=== PATIENT | female | born 1940 | race Caucasian/White ===

== ENCOUNTER 2021-02-28 09:40 | Outpatient (REF) | payer MEDICARE, SELFPAY ==
--- NOTE | ~2021-02-28 | XR_ITS ---
EXAMINATION: XR ANKLE, RIGHT CLINICAL INFORMATION: Swelling COMPARISON: Previous x-ray May 2014 TECHNIQUE: AP, lateral, and mortise views of the right ankle. FINDINGS: There is cortical irregularity of the lateral talus likely related to old fracture when compared with previous x-ray May 2014. There is also a well-corticated ossification inferior to the medial aspect of the lateral malleolus questionable for changes related to old trauma. No acute fracture or dislocation is seen. The ankle mortise is normal. There is lateral soft tissue swelling. There are small calcaneal spurs. There are 2 screws seen in the first metatarsal bone. XR/XR ankle RT min 3V IMPRESSION: Lateral soft tissue swelling. Evidence of old trauma to the lateral talus question lateral malleolus and
== END 2021-02-28 09:41 | disposition home or self-care (01) ==
LOC: HO.HMGCX 09:40
PROVIDERS: PCP Family Medicine; Visit Provider Nurse Practitioner Family
DX: M25.571 Pain in right ankle and joints of right foot (principal); M25.471 Effusion, right ankle
CPT/HCPCS: 73610

== ENCOUNTER 2022-04-18 09:04 | Outpatient (REF) | payer MEDICARE, SELFPAY ==
--- NOTE | ~2022-04-18 | XR_ITS ---
EXAMINATION: CR X-RAY FOOT AND ANKLE RIGHT CLINICAL INFORMATION: Right foot and ankle pain. COMPARISON: None TECHNIQUE: 3 views each of the right foot and ankle were obtained. FINDINGS: The ankle joint and mortise are intact. The tarsal bones are normally aligned. Post surgical changes are seen in the first metatarsal showing good anatomic alignment without hardware abnormality. Mild first metatarsophalangeal and distal interphalangeal degenerative joint changes are seen. There is no acute fracture or dislocation. The soft tissues are unremarkable. XR/XR ankle RT 2V IMPRESSION: Mild degenerative changes. No acute osseous abnormality or hardware abnormality.
--- NOTE | ~2022-04-18 | XR_ITS ---
EXAMINATION: CR X-RAY FOOT AND ANKLE RIGHT CLINICAL INFORMATION: Right foot and ankle pain. COMPARISON: None TECHNIQUE: 3 views each of the right foot and ankle were obtained. FINDINGS: The ankle joint and mortise are intact. The tarsal bones are normally aligned. Post surgical changes are seen in the first metatarsal showing good anatomic alignment without hardware abnormality. Mild first metatarsophalangeal and distal interphalangeal degenerative joint changes are seen. There is no acute fracture or dislocation. The soft tissues are unremarkable. XR/XR foot RT min 3V IMPRESSION: Mild degenerative changes. No acute osseous abnormality or hardware abnormality.
== END 2022-04-18 09:05 | disposition home or self-care (01) ==
LOC: HO.HMGCX 09:04
PROVIDERS: Visit Provider Internal Medicine
DX: S99.921A Unspecified injury of right foot, initial encounter (principal); M25.571 Pain in right ankle and joints of right foot
CPT/HCPCS: 73600; 73630

== ENCOUNTER 2023-05-14 13:06 | Outpatient (AMB) | payer MEDICARE, SELFPAY ==
--- NOTE | 2023-05-14 13:08 | MHC.OFFWIV ---
Intake Vital Signs 05/14/23 13:16 Height 5 ft 3 in Weight 141 lb BMI 25.0 BP 140/78 H Blood Pressure Location Rt brachial Position Sitting Pulse 67 Pulse Source Pulse Oximeter Temp 97.3 F Temp Source Temporal Artery Scan Pulse Oximetry (%) 98 Oxygen Delivery Method Room Air Intake Visit Reasons: EP, UTI? Intake Note: Pt is here c/o possible UTI. Pt states a lot of burning when urinating. Patient Tobacco Use Status: Never used Tobacco Allergies No Known Allergies Allergy (Mild, Unverified 05/14/23 13:30) NOT APPLICABLE Medication List - Last Reconciled 05/14/23 by Clint Puckett MD cholecalciferol (vitamin D3) PO fluticasone propionate 220 mcg/actuation 2 puffs inhalation BID furosemide mg PO levothyroxine 0 mcg PO losartan 100 mg PO DAILY mecobalamin (vitamin B12) PO DAILY rosuvastatin 5 mg PO DAILY Do you need a note to return to daycare/school/sports/work: No HPI EP, UTI? HPI Details Patient presents for a sick visit. Reports symptoms of increased frequency of urination, burning on urination and discomfort in the suprapubic area. Symptoms started in the past few days. No fevers or chills. No nausea or vomiting. [facility] Social History Patient Tobacco Use Status: Never used Tobacco Physical Exam Vital Signs: Last Vital Signs Temp 97.3 F 05/14/23 13:16 Pulse 67 05/14/23 13:16 BP 140/78 H 05/14/23 13:16 Pulse Ox 98 05/14/23 13:16 Oxygen Delivery Method Room Air 05/14/23 13:16 BMI result Body Mass Index 25.0 General: Yes bladder normal to palpation and Yes no CVA tenderness Bimanual exam- vagina & uterus: bladder normal to palpation Back/Spine/Pelvis Back: no CVA tenderness Results AMB Urinalysis, Automated UA Leukoctes 15 Debora/uL Last Edit by Rika Little CMA on 05/14/23 13:21 UA Nitrite Positive Last Edit by Rika Little CMA on 05/14/23 13:21 UA Urobilinogen 0.2 mg/dL Last Edit by Rika Little CMA on 05/14/23 13:21 UA Protein 0 mg/dL Last Edit by Rika Little, DANICA on 05/14/23 13:21 UA pH 6.0 Last Edit by Rika Little, DANICA on 05/14/23 13:21 UA Blood 0 Sarabjit/uL Last Edit by Rika Little, [employer] on 05/14/23 13:21 UA Specific Hickman 1.010 Last Edit by Rika Little, DANICA on 05/14/23 13:21 UA Ketone Negative Last Edit by Rika Little, [employer]IST on 05/14/23 13:21 UA Bilirubin 0 mg/dL Last Edit by Rika Little, [employer] on 05/14/23 13:21 UA Glucose 0 mg/dL Last Edit by Rika Little, DANICA on 05/14/23 13:21 Results Reviewed Results Reviewed: Laboratory Last Values Urine pH (Auto) 6.0 05/14/23 13:19 Specific Hickman (Auto) 1.010 05/14/23 13:19 Urine Protein (Auto) 0 mg/dL 05/14/23 13:19 Glucose (UA)(Auto) 0 mg/dL 05/14/23 13:19 Urine Ketones (Auto) Negative 05/14/23 13:19 Urine Blood (Auto) 0 Sarabjit/uL 05/14/23 13:19 Urine Nitrite (Auto) Positive 05/14/23 13:19 Urine Bilirubin (Auto) 0 mg/dL 05/14/23 13:19 Urine Urobilinogen (Auto) 0.2 mg/dL 05/14/23 13:19 Leukocyte Esterase (Auto) 15 Debora/uL 05/14/23 13:19 Assessment & Plan Assessment & Plan (1) Urinary tract infection: Code(s): N39.0 - Urinary tract infection, site not specified Plan: Bactrim and Pyridium called in. If symptoms do not improve to follow-up here. Orders: Orders AMB Urinalysis Automated Today Z13.9 - Encounter for screening, unspecified Coding Level of Care Code Est Pt Level 3 (18637) Diagnoses Urinary tract infection N39.0
[2023-05-14 13:16] VITALS: BP 140/78; PULSE 67; TEMP 36.3; O2SAT 98; BMI 25.0
== END 2023-05-14 13:27 | disposition home or self-care (01) ==
PROVIDERS: PCP Family Medicine; Visit Provider Internal Medicine
DX: N39.0 Urinary tract infection, site not specified (principal)
CPT/HCPCS: 81003; 99213